=== PATIENT | male | born 1995 | race African-American/Black ===

== ENCOUNTER 2021-05-12 21:28 | Emergency (ER) | payer BC ==
[~2021-05-12] VITALS: Ht 180.3 cm; Wt 91.0 kg
[2021-05-12] MEDS ORDERED: ONDANSETRON HCL 4MG/2ML INJ IV ONE (23:15)
[2021-05-12] MEDS ORDERED: MORPHINE SULFATE 4 MG/ML CPJ (NOT FOR IM USE) IV ONE (23:15)
[2021-05-12] MEDS ORDERED: KETAMINE HCL 50 MG/ML 10ML IV ONE (23:15)
[2021-05-13] MEDS ORDERED: KETAMINE HCL 50 MG/ML 10ML IV ONE (00:15)
[2021-05-13] MEDS ORDERED: IBUP-2029 MT (01:36)
[2021-05-13 01:56] VITALS: BP 125/77
== END 2021-05-13 02:26 | disposition home or self-care (01) ==
LOC: ER 21:28
DX: S43.085A Other dislocation of left shoulder joint, initial encounter (principal); W01.0XXA Fall on same level from slipping, tripping and stumbling without subsequent striking against object, initial encounter; Y93.89 Activity, other specified; Y92.89 Other specified places as the place of occurrence of the external cause; Y99.8 Other external cause status; Z98.890 Other specified postprocedural states
CPT/HCPCS: 23650; 73030; 96374; 96375; 99152; 99285; J2270; J2405; J3490; L3670